=== PATIENT | female | born 1990 | race American Indian/Alaskan Native ===

== ENCOUNTER 2019-09-02 04:11 | Emergency (ER) | payer MEDICAID, OTHER ==
[2019-09-02] MEDS ORDERED: Diphtheria,Pertussis(Acell),Tetanus Vaccine 0.5 ML SDV IM ONE (04:48)
--- NOTE | 2019-09-02 04:48 | EDM.PDOCBH ---
ED HPI GENERAL MEDICAL PROBLEM - General Stated Complaint: DEPRESSION Time Seen by Provider: 09/02/19 04:25 Source of Information: Reports: Patient History Limitations: Reports: No Limitations - History of Present Illness INITIAL COMMENTS - FREE TEXT/NARRATIVE: 38-year-old female who reports has been depressed for quite some time and reports that approximately 2 months ago her father and this has made her very sad and depressed. She states that she has been drinking alcohol every day for quite some time and since she was 12 years of age she has been cutting herself to cope with her depression and her emotional pains. Tonight she was drinking and she reports she became very anxious which is also another problem that she has (anxiety attacks) and she cut herself multiple times with a hot box operator over her left wrist and forearm area. She reports that she was doing this to "cope with her emotional pain" but she has also been having suicidal thoughts. She reports that she got to the point [facility] where "she couldn't handle things" and she called 911 because she wanted help. She presents to the emergency department via ambulance. The wound on her left wrist had a dressing in place and was not bleeding. She denied doing anything else to harm herself tonight other than drink alcohol. She denies any pain other than her mental anguish which is severe. No nausea or vomiting. No recent illnesses. There are no other associated signs or symptoms. There are no other modifying factors. Onset: Other (Ongoing depression for some time. 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 - Related Data Allergies Allergy/AdvReac Type Severity Reaction Status Date / Time quetiapine [From Seroquel] Allergy Difficulty Verified 09/02/19 04:52 Breathing trazodone Allergy Difficulty Verified 09/02/19 04:52 Breathing Home Meds: Home Meds NK [No Known Home Meds] 09/02/19 [History] Past Medical History HEENT History: Reports: Hard of Hearing Psychiatric History: Reports: Anxiety, Depression, PTSD, Other (See Below) ( Self cutting behaviors) - Past Surgical History GI Surgical History: Reports: Appendectomy Female Surgical History: Reports: Section Social & Family History - Tobacco Use Smoking Status *Q: Current Every Day Smoker - Alcohol Use Alcohol Use History: Yes Alcohol Use Frequency: Daily - Recreational Drug Use Recreational Drug Use: No Recreational Drug Use Comment: Patient denies. - Living Situation & Occupation Occupation: Employed (Works at [employer] in [place] ED ROS GENERAL - Review of Systems Review Of Systems: See Below Constitutional: Reports: No Symptoms HEENT: Reports: No Symptoms Respiratory: Reports: No Symptoms Cardiovascular: Reports: No Symptoms Endocrine: Reports: No Symptoms GI/Abdominal: Reports: No Symptoms : Reports: No Symptoms Musculoskeletal: Reports: Other (Right hand dominant) Skin: Reports: Wound (Multiple superficial self-inflicted wounds to the left wrist and forearm area) Neurological: Reports: No Symptoms Psychiatric: Reports: Anxiety, Depression, Suicidal Ideation (Off and on but no active thoughts at present.) Immunologic: Reports: Other (Greater than 5 years since her last tetanus immunization.) ED EXAM, BEHAVIORAL HEALTH - Physical Exam Exam: See Below Exam Limited By: No Limitations General Appearance: Alert, WD/WN, Anxious, Mild Distress Eye Exam: Bilateral Eye: EOMI, Normal Inspection, PERRL Ears: Normal External Exam, Hearing Loss (Chronic) Nose: Normal Inspection, Normal Mucosa, No Blood Throat/Mouth: Normal Inspection, Normal Voice, No Airway Compromise, Other ( Odor of alcohol on her breath) Head: Atraumatic, Normocephalic Neck: Normal Inspection, Supple, Non-Tender, Full Range of Motion Respiratory/Chest: No Respiratory Distress, Lungs Clear, Normal Breath Sounds, No Accessory Muscle Use, Chest Non-Tender Cardiovascular: Normal Peripheral Pulses, Regular Rate, Rhythm, No Edema, No Murmur GI/Abdominal: Normal Bowel Sounds, Soft, Non-Tender, No Mass Back Exam: Normal Inspection, Full Range of Motion Extremities: Normal Range of Motion, No Pedal Edema, Normal Capillary Refill Neurological: Alert, Normal Cognition, No Motor/Sensory Deficits, Oriented x 3 Psychiatric: Alert, Normal Cognition, Oriented, Depressed Mood Skin Exam: Warm, Dry, Normal color, Signs of self injury (Multiple superficial, nonsuturable lacerations to the left wrist and forearm area.), Wound/incision COURSE, BEHAVIORAL HEALTH COMP - Course Vital Signs: Last Vital Signs Temp 36.4 C 09/02/19 04:15 Pulse 74 09/02/19 08:40 Resp 18 09/02/19 08:40 BP 114/66 09/02/19 08:40 Pulse Ox 94 L 09/02/19 08:40 Orders, Labs, Meds: Active Orders 24 hr Category Date Time Status Communication Order [RC] STAT Care 09/02/19 04:48 Active Vaccines to be Administered [RC] PER UNIT ROUTINE Care 09/02/19 04:48 Active CHLAMYDIA/GC AMPLIFICATION Urgent Lab 09/02/19 05:20 Received Laboratory Tests 09/02/19 09/02/19 09/02/19 Range/Units 05:05 05:05 05:05 WBC 4.8 (4.5-12.0) X10-3/uL RBC 4.15 (3.23-5.20) x10(6)uL Hgb 12.0 (11.5-15.5) g/dL Hct 35.8 (30.0-51.3) % MCV 86.4 (80-96) fL MCH 28.9 (27.7-33.6) pg MCHC 33.5 (32.2-35.4) g/dL RDW 17.1 H (11.5-15.5) % Plt Count 306 (125-369) X10(3)uL MPV 8.0 (7.4-10.4) fL Neut % (Auto) 52.4 (46-82) % Lymph % (Auto) 39.8 H (13-37) % [place] % (Auto) 5.5 (4-12) % Eos % (Auto) 2 (1.0-5.0) % Baso % (Auto) 0 (0-2) % Neut # (Auto) 2.5 (1.6-8.3) # Lymph # (Auto) 1.9 (0.6-5.0) # [place] # (Auto) 0.3 (0.0-1.3) # Eos # (Auto) 0.1 (0.0-0.8) # Baso # (Auto) 0.0 (0.0-0.2) # Sodium 142 (135-145) mmol/L Potassium 3.3 L (3.5-5.3) mmol/L Chloride 106 (100-110) mmol/L Carbon Dioxide 26 (21-32) mmol/L BUN 4 L (7-18) mg/dL Creatinine 0.8 (0.55-1.02) mg/dL Est Cr Clr Drug Dosing TNP Estimated GFR (MDRD) > 60 (>60) BUN/Creatinine Ratio 5.0 L (9-20) Glucose 95 (80-116) mg/dL Calcium 8.0 L (8.6-10.2) mg/dL Total Bilirubin 0.2 (0.1-1.3) mg/dL AST 23 (5-25) IU/L ALT 24 (12-36) U/L Alkaline Phosphatase 108 (56-112) IU/L Total Protein 7.5 (6.0-8.0) g/dL Albumin 3.5 (3.5-5.2) g/dL Globulin 4.0 g/dL Albumin/Globulin Ratio 0.9 TSH, Ultra Sensitive 2.43 (0.36-3.74) IU/mL Urine HCG, Qual (NEGATIVE) Salicylates 3.4 (<2.8) mg/dL Urine Opiates Screen (NEGATIVE) Ur Oxycodone Screen (NEGATIVE) Ur Propoxyphene Screen (NEGATIVE) Acetaminophen < 2 L (<2) ug/mL Ur Barbituates Screen (NEGATIVE) Ur Tricyclics Screen (NEGATIVE) Ur Phencyclidine Scrn (NEGATIVE) Ur Amphetamine Screen (NEGATIVE) Urine MDMA Screen (NEGATIVE) U Benzodiazepines Scrn (NEGATIVE) U Cocaine Metab Screen (NEGATIVE) U Marijuana (THC) Screen (NEGATIVE) Ethyl Alcohol 0.27 H* (<0.03) % 09/02/19 09/02/19 09/02/19 Range/Units 05:20 05:20 08:40 WBC (4.5-12.0) X10-3/uL RBC (3.23-5.20) x10(6)uL Hgb (11.5-15.5) g/dL Hct (30.0-51.3) % MCV (80-96) fL MCH (27.7-33.6) pg MCHC (32.2-35.4) g/dL RDW (11.5-15.5) % Plt Count (125-369) X10(3)uL MPV (7.4-10.4) fL Neut % (Auto) (46-82) % Lymph % (Auto) (13-37) % [place] % (Auto) (4-12) % Eos % (Auto) (1.0-5.0) % Baso % (Auto) (0-2) % Neut # (Auto) (1.6-8.3) # Lymph # (Auto) (0.6-5.0) # [place] # (Auto) (0.0-1.3) # Eos # (Auto) (0.0-0.8) # Baso # (Auto) (0.0-0.2) # Sodium (135-145) mmol/L Potassium (3.5-5.3) mmol/L Chloride (100-110) mmol/L Carbon Dioxide (21-32) mmol/L BUN (7-18) mg/dL Creatinine (0.55-1.02) mg/dL Est Cr Clr Drug Dosing Estimated GFR (MDRD) (>60) BUN/Creatinine Ratio (9-20) Glucose (80-116) mg/dL Calcium (8.6-10.2) mg/dL Total Bilirubin (0.1-1.3) mg/dL AST (5-25) IU/L ALT (12-36) U/L Alkaline Phosphatase (56-112) IU/L Total Protein (6.0-8.0) g/dL Albumin (3.5-5.2) g/dL Globulin g/dL Albumin/Globulin Ratio TSH, Ultra Sensitive (0.36-3.74) IU/mL Urine HCG, Qual Negative (NEGATIVE) Salicylates (<2.8) mg/dL Urine Opiates Screen Negative (NEGATIVE) Ur Oxycodone Screen Negative (NEGATIVE) Ur Propoxyphene Screen Negative (NEGATIVE) Acetaminophen (<2) ug/mL Ur Barbituates Screen Negative (NEGATIVE) Ur Tricyclics Screen Negative (NEGATIVE) Ur Phencyclidine Scrn Negative (NEGATIVE) Ur Amphetamine Screen Negative (NEGATIVE) Urine MDMA Screen Negative (NEGATIVE) U Benzodiazepines Scrn Negative (NEGATIVE) U Cocaine Metab Screen Negative (NEGATIVE) U Marijuana (THC) Screen Negative (NEGATIVE) Ethyl Alcohol 0.21 H* (<0.03) % 09/02/19 09/02/19 Range/Units 12:02 15:05 WBC (4.5-12.0) X10-3/uL RBC (3.23-5.20) x10(6)uL Hgb (11.5-15.5) g/dL Hct (30.0-51.3) % MCV (80-96) fL MCH (27.7-33.6) pg MCHC (32.2-35.4) g/dL RDW (11.5-15.5) % Plt Count (125-369) X10(3)uL MPV (7.4-10.4) fL Neut % (Auto) (46-82) % Lymph % (Auto) (13-37) % [place] % (Auto) (4-12) % Eos % (Auto) (1.0-5.0) % Baso % (Auto) (0-2) % Neut # (Auto) (1.6-8.3) # Lymph # (Auto) (0.6-5.0) # [place] # (Auto) (0.0-1.3) # Eos # (Auto) (0.0-0.8) # Baso # (Auto) (0.0-0.2) # Sodium (135-145) mmol/L Potassium (3.5-5.3) mmol/L Chloride (100-110) mmol/L Carbon Dioxide (21-32) mmol/L BUN (7-18) mg/dL Creatinine (0.55-1.02) mg/dL Est Cr Clr Drug Dosing Estimated GFR (MDRD) (>60) BUN/Creatinine Ratio (9-20) Glucose (80-116) mg/dL Calcium (8.6-10.2) mg/dL Total Bilirubin (0.1-1.3) mg/dL AST (5-25) IU/L ALT (12-36) U/L Alkaline Phosphatase (56-112) IU/L Total Protein (6.0-8.0) g/dL Albumin (3.5-5.2) g/dL Globulin g/dL Albumin/Globulin Ratio TSH, Ultra Sensitive (0.36-3.74) IU/mL Urine HCG, Qual (NEGATIVE) Salicylates (<2.8) mg/dL Urine Opiates Screen (NEGATIVE) Ur Oxycodone Screen (NEGATIVE) Ur Propoxyphene Screen (NEGATIVE) Acetaminophen (<2) ug/mL Ur Barbituates Screen (NEGATIVE) Ur Tricyclics Screen (NEGATIVE) Ur Phencyclidine Scrn (NEGATIVE) Ur Amphetamine Screen (NEGATIVE) Urine MDMA Screen (NEGATIVE) U Benzodiazepines Scrn (NEGATIVE) U Cocaine Metab Screen (NEGATIVE) U Marijuana (THC) Screen (NEGATIVE) Ethyl Alcohol 0.14 H 0.06 H (<0.03) % Medications Discontinued Medications Generic Name Dose Route Start Last Admin Trade Name Tj PRN Reason Stop Dose Admin Bacitracin 1 dose 09/02/19 04:50 09/02/19 05:00 Bacitracin Oint 1 Gm TOP 09/02/19 04:51 1 dose ONETIME ONE Administration Diphtheria/Tetanus/Acell Pertussis 0.5 ml 09/02/19 04:48 09/02/19 05:10 Adacel IM 09/02/19 04:49 0.5 ml .ONCE ONE Administration Re-Assessment/Re-Exam: 05:40: Patient remains calm and cooperative. Her wounds have been cleaned and a sterile dressing with bacitracin has been applied by the nursing staff. The patient's blood alcohol was 270 mg deciliter. Her other blood tests were reassuringly normal. Her urine tox was negative. Her test was negative. For now, we will continue to watch the patient, provide a safe and protected environment and repeat her blood alcohol in approximately 3 hours. We have preliminarily contacted [facility] and will await to have them do psychiatric evaluation of the patient after the second blood alcohol evaluation. 0940: Patient's repeat blood alcohol was 210 mg/dL. She remains calm and cooperative. She has been sleeping. We will continue to observe the patient, provide a safe and protected environment and will repeat her blood alcohol at approximately noon with reevaluation of the patient following this. 13:00: The patient's repeat blood alcohol was 140 mg/dL. She has eaten and tolerated that well. Calm and cooperative and is curious as to what is going on at this point. She understands the need to wait for her blood alcohol to decrease and is patiently waiting for this. I will repeat the blood alcohol at 3 p.m. and reevaluated the patient at that time. 15:30: The patient's blood alcohol is now 60 mg deciliter. She is awake, alert and appropriate. She denies suicidal ideation at this point. She reports that last night she was cutting to relieve stress and she had no intention of committing suicide. She feels much better and is ready to go home. She will be working tomorrow she states and she needs to get ready for that. She is willing to contract for safety. Departure - Departure Time of Disposition: 15:35 Disposition: Home, Self-Care 01 Condition: Good (Improve) Clinical Impression: Self-harm, Alcohol abuse, Anxiety Depression Qualifiers: Depression Type: unspecified Qualified Code(s): F32.9 - Major depressive disorder, single episode, unspecified Alcohol intoxication Qualifiers: Complication of substance-induced condition: uncomplicated Qualified Code(s): F10.920 - Alcohol use, unspecified with intoxication, uncomplicated - Discharge Information Instructions: What You Need to Know About Alcohol Abuse and Dependence, Adult, Suicidal Feelings: How to Help Yourself Referrals: PCP,Unknown [Primary Care Provider] - Additional Instructions: You were heavily intoxicated last night. That has resolved at this point. Your other blood tests were reassuringly normal. We have given you information on the [facility] and paperwork to fill out an order to "fast track" for an appointment. I strongly encourage you to follow-up with the [facility] for counseling and possible medications. You need to wash the wounds on your left wrist and forearm with mild soap and water, apply bacitracin and a supportive dressing 1-2 times daily until the wounds have healed. Back to the emergency department for signs of infection and other as below. By signing your discharge paperwork, you are gregoria with us for safety. That is, you are affirming that you have no suicidal thoughts or plans at this time and that you have no thoughts or plans of harming herself. You also affirm that you will not harm or kill yourself. You affirm that if you begin to have thoughts of wanting to harm or kill yourself, you will not harm or kill yourself and you will tell somebody around you about your feelings, call the mental health crisis line or you'll come back to the emergency department for evaluation. - My Orders Last 24 Hours: My Active Orders 09/02/19 04:48 Communication Order [RC] STAT Vaccines to be Administered [RC] PER UNIT ROUTINE 09/02/19 05:20 CHLAMYDIA/GC AMPLIFICATION Urgent - Assessment/Plan Last 24 Hours: My Active Orders 09/02/19 04:48 Communication Order [RC] STAT Vaccines to be Administered [RC] PER UNIT ROUTINE 09/02/19 05:20 CHLAMYDIA/GC AMPLIFICATION Urgent
[2019-09-02] MEDS ORDERED: Bacitracin Oint 1 GM U/D Packet TOP ONE (04:50)
[2019-09-02 05:34] LABS: ACETAMINOPHEN < 2 ug/mL (<2)
[2019-09-06 13:10] LABS: CHLAMYDIA TRACHOMATIS, NAA Negative (Negative); NEISSERIA GONORRHOEAE, NAA Negative (Negative)
== END 2019-09-02 16:10 | disposition home or self-care (01) ==
LOC: FB.ED 04:11
DX: S61.512A Laceration without foreign body of left wrist, initial encounter (principal); S51.812A Laceration without foreign body of left forearm, initial encounter; F10.120 Alcohol abuse with intoxication, uncomplicated; Y90.7 Blood alcohol level of 200-239 mg/100 ml; F32.9 Major depressive disorder, single episode, unspecified; F41.9 Anxiety disorder, unspecified; Z23 Encounter for immunization; F17.200 Nicotine dependence, unspecified, uncomplicated; Z88.8 Allergy status to other drugs, medicaments and biological substances; X78.1XXA Intentional self-harm by knife, initial encounter
CPT/HCPCS: 36415; 80053; 80305-QW; 81025; 84443; 85025; 87491; 87591; 90471; 90715; 99284; G0480